=== PATIENT | female | born 1950 | race Hispanic/Latino ===

== ENCOUNTER 2017-04-07 07:39 | Inpatient (IN) | payer MEDICARE, OTHER ==
--- NOTE | 2017-04-02 12:53 | Anesthesia Consultation ---
Anesthesia Consult and Med Hx Date of service: 04/07/17 - Airway Anesthetic Teeth Evaluation: Poor, Caps ROM Head & Neck: Adequate Mental/Hyoid Distance: Adequate Mallampati Class: Class III Intubation Access Assessment: Probably Good - Pulmonary Exam CTA: Yes - Cardiac Exam Cardiac Exam: RRR - Pre-Operative Health Status ASA Pre-Surgery Classification: ASA3 Proposed Anesthetic Plan: General - Pulmonary Hx Smoking: Yes (QUIT 25 YEARS AGO) Hx Sleep Apnea: Yes - Cardiovascular System Hx Hypertension: Yes (OVER 50YEARS) - Central Nervous System Hx Psychiatric Problems: Yes - Gastrointestinal Hx Gastroesophageal Reflux Disease: Yes - Other Systems Hx Alcohol Use: No Hx Substance Use: No Hx Cancer: No Hx Obesity: Yes - Additional Comments Anesthesia Medical History Comments: h/o arthritis, HLD. Pulmonary and cardiac evaluation pending
[~2017-04-07 07:39] MED LIST: ANCEF/STERILE WATER 2 GM/20 ML 2 GM/20 ML SYRINGE IV NR; APRESOLINE IV PRN; FLAGYL 500 MG/100 ML 500 MG/100 ML BAG IV NR; LOVENOX SUB-Q NR; MARCAINE 0.5% INFILTRATI ONE; MORPHINE IV PRN; MYLICON PO PRN; NACL 0.9% IR ONE; REGLAN IV PRN; TRANSDERM-SCOP TD SCH; XYLOCAINE 1% 20 mL INFILTRATI ONE; ZOFRAN IV PRN
[2017-04-07] MEDS ORDERED: NACL BACTERIOSTATIC INFILTRATI ONE (10:57)
[2017-04-07] MEDS: LACTATED RINGERS 1,000 ML IV SCH (11:28)
[2017-04-07] MEDS ORDERED: PEPCID IV ONE (12:06)
[2017-04-07] MEDS ORDERED: XYLOCAINE CARDIAC IV ONE (12:18)
[2017-04-07] MEDS ORDERED: ZEMURON IV ONE (12:18)
[2017-04-07] MEDS ORDERED: QUELICIN ONE (12:18)
[2017-04-07] MEDS ORDERED: DIPRIVAN 10 MG/ML IV ONE (12:19)
[2017-04-07] MEDS ORDERED: SUBLIMAZE ONE (12:21)
[2017-04-07] MEDS ORDERED: PEPCID IV NR (13:00)
[2017-04-07] MEDS ORDERED: MARCAINE 0.5% 30 ML INFILTRATI ONE (13:03)
[2017-04-07] MEDS ORDERED: XYLOCAINE 1% 20 mL ONE (13:03)
--- NOTE | 2017-04-07 13:46 | Anesthesia Day of Surgery ---
Anesthesia Day of Surgery - Day of Surgery Patient Examined: Yes Patient H&P Reviewed: Yes Patient is NPO: Yes
[2017-04-07] MEDS ORDERED: DILAUDID ONE (14:45)
[2017-04-07] MEDS ORDERED: APRESOLINE ONE (14:54)
[2017-04-07] MEDS ORDERED: NEOSTIGMINE ONE (15:14)
[2017-04-07] MEDS ORDERED: DECADRON ONE (15:14)
[2017-04-07] MEDS ORDERED: ROBINUL ONE (15:14)
[2017-04-07] MEDS ORDERED: ZOFRAN ONE (15:14)
[2017-04-07] MEDS ORDERED: PROAIR IH ONE (15:25)
[2017-04-07] MEDS ORDERED: VALIUM PO PRN (15:31)
--- NOTE | 2017-04-07 15:38 | Operative Report ---
Operative Report Operative Report: DATE OF PROCEDURE: 12/23/16 PREOPERATIVE DIAGNOSES: Morbid obesity, hiatal hernia POSTOPERATIVE DIAGNOSES: 1.same as pre-op SURGEON: Dr. Ramsey EMT BASIC: Crystal King DO, Dr. Kenny PROCEDURE: 1. laparoscopic sleeve gastrectomy 2. laparoscopic hiatal hernia repair 3.Lysis of adhesions ANESTHESIA: General. ESTIMATED BLOOD LOSS: <5 mL. COMPLICATIONS: None. SPECIMEN: Partial gastrectomy. FINDINGS: 1. hiatal hernia 2. Adhesions in the midline and RUQ. INDICATION FOR PROCEDURE: Patient is a 67-year-old female with hx of an open cholecystectomy and a long history of morbid obesity. She has tried multiple efforts at weight loss without [facility]cf[facility] success. She is here today for sleeve gastrectomy. PROCEDURE IN DETAIL: After consent was reviewed, patient was taken back to the operating room, where patient was placed supine on the bed with both arms out. The patient's legs were doubly strapped to the bed. Patient had a foot board in place. Patient had a body warmer placed by anesthesia. Patient was then prepped and draped in normal sterile surgical fashion. After a time-out was called, I made a stab incision in the left upper quadrant and placed a verress needed through this incison and insufflated the abdomen to 18mmgh pressure. Once the abdomen was adequately inflated I made an incision in the umbilicus and inserted a 15mm trocar. I then placed a 45-degree scope through this port and inspected the abdomen. There was no injury on entry of the abdomen. I then placed two 5-mm ports in the right upper quadrant, one along the anterior axillary line and 1 subxiphoid below the costovertebral angle. Prior to placing additional ports adhesions were lysed in the right upper quadrant and midline. I then placed left upper quadrant port along the anterior axillary line in a similar fashion. I then placed the liver retractor through the subxiphoid port and placed the patient in full reverse Trendelenburg. The right and left crura were skeletonized accentuating a small hiatal hernia. An anterior cruraplasty was perfromed with a figure-of-8 stitch using [id number] with 0 ethibond suture to reapproximate the crura. I then identified the pylorus and then counted off 6cm from the pylorus. I then used a LigaSure cutting device to enter into the lesser sac. At that point and then I took down the short gastrics all the way up to the left jules. Then I had anesthesia pass down a 40-Liberian bougie along the lesser curvature of the stomach. I made sure everything else was out of the abdomen except the bougie. I then created my gastric sleeve using a 60-mm laparoscopic stapler. . The sleeve looked good without any twisting or torsion. I then had anesthesia to remove the bougie. Hemostasis was obtained along the staple line. I then removed liver grasper and took it off the field. I then removed the stomach through the 15-mm umbilcal port. I then closed that fascia with a #1 PDS in a [id number] fashion using a Josh-Meenakshi. I then desufflated the abdomen and then removed all port sites. I then closed the incisions with 4-0 Monocryl in subcuticular fashion. I then dressed the wounds with Dermabond. Patient tolerated the procedure well and was transferred to recovery room in good and stable condition
[2017-04-07] MEDS: NORCO PO PRN (16:44)
[2017-04-07] MEDS: DILAUDID IV PRN ×2 (18:46→23:44)
[2017-04-07] MEDS ORDERED: REQUIP PO SCH (22:00)
[2017-04-08 04:37] LABS: Basophils % (Auto) 0.4 % (0.0-1.8); Hematocrit 33.8 % (30.3-42.9); Hemoglobin 11.7 gm/dl (10.1-14.3); Lymphocytes # (Auto) 0.7 K/mm3 (1.2-5.4); Lymphocytes % (Auto) 9.6 % (13.4-35.0); Mean Corpuscular HGB Conc 35 % (30-34); Mean Corpuscular Hemoglobin 31 pg (28-32); Mean Corpuscular Volume 91 fl (79-97); Monocytes # (Auto) 0.7 K/mm3 (0.0-0.8); Monocytes % (Auto) 9.8 % (0.0-7.3); Platelet Count 146 K/mm3 (140-440); Red Blood Count 3.73 M/mm3 (3.65-5.03); Red Cell Distribution Width 13.7 % (13.2-15.2)
[2017-04-08 05:10] LABS: Calcium 8.5 mg/dL (8.4-10.2)
[2017-04-08] MEDS: NORCO PO PRN ×2 (09:29→15:59)
[2017-04-08] MEDS: LACTATED RINGERS 1,000 ML IV SCH (09:43)
[2017-04-08] MEDS ORDERED: LOVENOX SUB-Q SCH (10:00)
[2017-04-08] MEDS ORDERED: PROTONIX IV SCH (10:00)
[2017-04-08] MEDS ORDERED: CORGARD PO SCH (10:00)
[2017-04-08] MEDS ORDERED: ZOLOFT PO SCH (10:00)
[2017-04-08] MEDS ORDERED: EFFEXOR PO SCH (10:00)
[2017-04-08] MEDS ORDERED: DITROPAN XL PO SCH (10:00)
[2017-04-08] MEDS: DILAUDID IV PRN (12:34)
--- NOTE | 2017-04-08 14:25 | Progress Note ---
Objective Vital Signs - 12hr 04/08/17 04/08/17 04/08/17 04:33 08:54 08:55 Temperature 98.1 F 98.7 F Pulse Rate 60 55 L 57 L Respiratory 20 18 Rate Blood Pressure 117/55 129/50 O2 Sat by Pulse 95 97 97 Oximetry 04/08/17 09:44 Temperature Pulse Rate 55 L Respiratory Rate Blood Pressure 129/50 O2 Sat by Pulse Oximetry - Labs 04/08/17 04:00 04/08/17 04:00 Diabetes panel 04/08/17 Range/Units 04:00 Sodium 141 (137-145) mmol/L Potassium 3.5 L (3.6-5.0) mmol/L Chloride 98.8 (98-107) mmol/L Carbon Dioxide 25 (22-30) mmol/L BUN 38 H (7-17) mg/dL Creatinine 1.3 H (0.7-1.2) mg/dL Glucose 78 (65-100) mg/dL Calcium 8.5 (8.4-10.2) mg/dL Calcium panel 04/08/17 Range/Units 04:00 Calcium 8.5 (8.4-10.2) mg/dL Pituitary panel 04/08/17 Range/Units 04:00 Sodium 141 (137-145) mmol/L Potassium 3.5 L (3.6-5.0) mmol/L Chloride 98.8 (98-107) mmol/L Carbon Dioxide 25 (22-30) mmol/L BUN 38 H (7-17) mg/dL Creatinine 1.3 H (0.7-1.2) mg/dL Glucose 78 (65-100) mg/dL Calcium 8.5 (8.4-10.2) mg/dL Adrenal panel 04/08/17 Range/Units 04:00 Sodium 141 (137-145) mmol/L Potassium 3.5 L (3.6-5.0) mmol/L Chloride 98.8 (98-107) mmol/L Carbon Dioxide 25 (22-30) mmol/L BUN 38 H (7-17) mg/dL Creatinine 1.3 H (0.7-1.2) mg/dL Glucose 78 (65-100) mg/dL Calcium 8.5 (8.4-10.2) mg/dL
--- NOTE | 2017-04-08 15:42 | Discharge Summary ---
Providers - Providers Date of Admission: 04/07/17 09:54 Attending physician: JUDITH GALINDO Primary care physician: MICHELLE SHARMA Hospitalization Reason for admission: Surgery Condition: Stable Procedures: Laparoscopic Sleeve Gastrectomy with hiatal hernia repair Hospital course: 67 y.o. F admitted for a laparoscopic sleeve gastrectomy on 04/07/17.On POD one she tolerated liquids and denies any nausea or vomiting. . She has not experienced any nausea or vomiting and is tolerating her liquids well. She only complains of dry mouth and diffuse abdominal tenderness to palpation at incision sites however the pain is controlled with pain medication. She denied having any bowel movements or flatulence. She ambulated well. She was able to be discharged on POD 1 without issues. Disposition: DC- TO HOME OR SELFCARE Core Measure Documentation - Palliative Care Palliative Care/ Comfort Measures: Not Applicable (care palliative care not applicable) - Core Measures Any of the following diagnoses?: none Exam - Constitutional Vitals: Temp Pulse Resp BP Pulse Ox 98.4 F 57 L 18 128/37 98 04/08/17 11:20 04/08/17 11:21 04/08/17 11:20 04/08/17 11:20 04/08/17 11:21 General appearance: Present: no acute distress, well-nourished (exam) - EENT Eyes: Present: PERRL, EOM intact ENT: hearing intact, no ulcerations - Neck Neck: Present: normal ROM - Respiratory Respiratory effort: normal Respiratory: bilateral: CTA, negative: diminished, rales, rhonchi, wheezing - Cardiovascular Rhythm: regular Heart Sounds: Present: S1 & S2. Absent: gallop, rub, click - Extremities Extremities: no ischemia, pulses intact (2+ DP/PT pulses bilaterally), pulses symmetrical Peripheral Pulses: within normal limits - Abdominal General gastrointestinal: Present: soft, tender (tender at incision sites. incision sites- dressing intact. with minimal bloostained), non-distended, normal bowel sounds Localized gastrointestinal: tender: diffuse (tenderness only to palpation) Female genitourinary: Present: deferred - Rectal Rectal Exam: deferred - Integumentary Integumentary: Present: clear, dry, normal turgor. Absent: rash, clammy - Musculoskeletal Musculoskeletal: strength equal bilaterally - Psychiatric Psychiatric: appropriate mood/affect, intact judgment & insight, cooperative - Neurologic Neurologic: moves all extremities, gait normal Plan Activity: other (No lifting more than 15 Ibs for 6 weeks, refrain from doing crunches for 6 weeks) Diet: clear liquids (Clear liquids for a week then advance diet every week per bariatric handout) Wound: keep clean and dry, other Additional Instructions: follow up with wound check appointment. Start with clear sugar free diet. Advance diet per handout. Goal fluid intake should be 64oz and goal protein should be 60g. Discuss with your primary surgeon prior to taking your home medication for your blood pressure. Your blood pressure has been 120systolic. Follow up with: MICHELLE SHARMA MD [Primary Care Provider] - 7 Days
[2017-04-08 17:18] VITALS: BP 126/52
[2017-04-08] MEDS ORDERED: BENADRYL IV ONE (17:37)
== END 2017-04-08 18:35 | disposition home or self-care (01) | DRG 621 ==
LOC: 3A 09:54 → 3B-SURG 16:04
PROVIDERS: ADMIT Specialist; ATTEND Specialist
PROC: 0DB64Z3 Excision of Stomach, Percutaneous Endoscopic Approach, Vertical (ICD-10-PCS; principal; 2017-04-07)
PROC: 0BQT4ZZ Repair Diaphragm, Percutaneous Endoscopic Approach (ICD-10-PCS; 2017-04-07)
DX: E66.01 Morbid (severe) obesity due to excess calories (principal); K44.9 Diaphragmatic hernia without obstruction or gangrene; Z68.42 Body mass index [BMI] 45.0-49.9, adult; I10 Essential (primary) hypertension; K21.9 Gastro-esophageal reflux disease without esophagitis; Z90.49 Acquired absence of other specified parts of digestive tract; K66.0 Peritoneal adhesions (postprocedural) (postinfection); Z87.891 Personal history of nicotine dependence; G47.30 Sleep apnea, unspecified; M19.90 Unspecified osteoarthritis, unspecified site
CPT/HCPCS: 36415; 80048; 85025; 88307; 94760; A4217; C9113; J0330; J0360; J0690; J1100; J1170; J1200; J1650; J2001; J2270; J2405; J2704; J2710; J3010; J7120

== ENCOUNTER 2017-05-04 08:07 | Inpatient (IN) | payer MEDICARE, OTHER ==
[2017-05-04 09:01] LABS: Basophils # (Auto) 0.1 K/mm3 (0.0-0.1); Eosinophils % (Auto) 0.3 % (0.0-4.3); Hematocrit 40.2 % (30.3-42.9); Hemoglobin 13.3 gm/dl (10.1-14.3); Mean Corpuscular HGB Conc 33 % (30-34); Mean Corpuscular Hemoglobin 31 pg (28-32); Mean Corpuscular Volume 92 fl (79-97); Monocytes # (Auto) 0.7 K/mm3 (0.0-0.8); Monocytes % (Auto) 5.4 % (0.0-7.3); Platelet Count 157 K/mm3 (140-440); Red Blood Count 4.36 M/mm3 (3.65-5.03); Red Cell Distribution Width 14.7 % (13.2-15.2)
[2017-05-04 09:08] LABS: Albumin 4.2 g/dL (3.9-5); Calcium 10.4 mg/dL (8.4-10.2)
--- NOTE | 2017-05-04 09:33 | XRay Report ---
AP ABDOMEN: HISTORY: Abdominal pain. Surgical clips are noted in the right upper quadrant and left paraspinal region, correlate with history. The abdominal gas pattern is unremarkable. No masses or organomegaly is identified and there is no gross evidence of free air or fluid. No significant soft tissue calcifications are noted. IMPRESSION: Unremarkable abdomen.
[2017-05-04 09:40] LABS: Basophils % (Manual) 0 % (0.0-1.8); Eosinophils % (Manual) 0 % (0.0-4.3); RBC Morphology Normal; Total Cells Counted 100
[2017-05-04] MEDS ORDERED: MORPHINE IV ONE ×2 (12:57→17:48)
[2017-05-04] MEDS ORDERED: NACL 0.9% 1000 ML 1,000 ML IV ONE ×2 (12:57→12:58)
[2017-05-04] MEDS ORDERED: ZOFRAN IV ONE (12:57)
--- NOTE | 2017-05-04 13:02 | Emergency Department Report ---
ED Abdominal Pain HPI - General Chief Complaint: Abdominal Pain Stated Complaint: GI BLEED Time Seen by Provider: 05/04/17 12:51 Source: patient, family Mode of arrival: Ambulatory Limitations: No Limitations - History of Present Illness Initial Comments: Patient is 67 years old female history of gastric sleeves surgery [address] Ramsey, here in [facility]. Patient stated that she was doing well until yesterday when she started having lower abdominal pain mainly to the left side, associated with rectal bleeding. Patient is also complaining of nausea but no vomiting. Patient denied any fever. MD Complaint: abdominal pain -: Last night Location: LLQ, epigastric Radiation: none Severity: moderate Severity scale (0 -10): 7 Quality: sharp Associated Symptoms: nausea, vomiting - Related Data Home Medications Medication Instructions Recorded Confirmed Last Taken Alendronate Sodium [Fosamax] 70 mg PO QWEEK 04/01/17 04/07/17 04/02/17 Dexlansoprazole (Nf) [Dexilant 60 mg PO QHS 04/01/17 04/01/17 04/07/17 08:00 (Nf)] Diazepam 5 mg PO PRN PRN 04/01/17 04/07/17 04/05/17 Ergocalciferol [Vitamin D2] 1 cap PO QWEEK 04/01/17 04/07/17 04/02/17 Nadolol 80 mg PO DAILY 04/01/17 04/01/17 04/07/17 08:00 Oxybutynin Chloride [Ditropan Xl] 15 mg PO QDAY 04/01/17 04/01/17 04/07/17 08:00 Potassium Chloride [Klor-Con M10] 10 meq PO DAILY 04/01/17 04/01/17 04/07/17 08: 00 Pravastatin [Pravachol] 20 mg PO QHS 04/01/17 04/01/17 04/07/17 08:00 Ranitidine HCl [Zantac 300 MG TAB] 300 mg PO DAILY 04/01/17 04/07/17 04/06/17 Sertraline [Zoloft] 200 mg pe PO DAILY 04/01/17 04/01/17 04/07/17 08:00 Triamter/Hctz 75-50 mg (Nf) 1 tab PO DAILY 01/04/07/17 04/06/17 [Maxzide 75-50 mg] Venlafaxine HCl 75 mg PO DAILY 04/01/17 04/01/17 04/07/17 08:00 rOPINIRole [Requip] 2 mg PO QHS 04/01/17 04/07/17 04/06/17 Allergies Allergy/AdvReac Type Severity Reaction Status Date / Time No Known Allergies Allergy Verified 04/01/17 13:48 ED Review of Systems ROS: Stated complaint: GI BLEED Other details as noted in HPI Comment: All other systems reviewed and negative Constitutional: denies: chills, fever Respiratory: denies: cough, shortness of breath, SOB with exertion, SOB at rest Cardiovascular: denies: chest pain, palpitations, dyspnea on exertion Gastrointestinal: abdominal pain, nausea. denies: diarrhea, constipation, hematemesis, melena, hematochezia Genitourinary: denies: urgency, dysuria, frequency, hematuria, discharge Neurological: denies: headache, weakness, numbness, paresthesias ED Past Medical Hx - Past Medical History Previous Medical History?: Yes Hx Hypertension: Yes Hx GERD: Yes Hx Arthritis: Yes Hx HIV: No - Surgical History Past Surgical History?: Yes Hx Cholecystectomy: Yes Additional Surgical History: gastric sleeve - Social History Smoking Status: Never Smoker - Medications Home Medications: Home Medications Medication Instructions Recorded Confirmed Last Taken Type Alendronate Sodium [Fosamax] 70 mg PO QWEEK 04/01/17 04/07/17 04/02/[address] Garcia) [Dexilant 60 mg PO QHS 04/01/17 04/01/17 04/07/17 08:[address] Garcia)] Diazepam 5 mg PO PRN PRN 04/01/17 04/07/17 04/05/17 History Ergocalciferol [Vitamin D2] 1 cap PO QWEEK 04/01/17 04/07/17 04/02/17 History Nadolol 80 mg PO DAILY 04/01/17 04/01/17 04/07/17 08:00 History Oxybutynin Chloride [Ditropan Xl] 15 mg PO QDAY 04/01/17 04/01/17 04/07/17 08: 00 History Potassium Chloride [Klor-Con M10] 10 meq PO DAILY 04/01/17 04/01/17 04/07/17 08: 00 History Pravastatin [Pravachol] 20 mg PO QHS 04/01/17 04/01/17 04/07/17 08:00 History Ranitidine HCl [Zantac 300 MG TAB] 300 mg PO DAILY 04/01/17 04/07/17 04/06/17 History Sertraline [Zoloft] 200 mg pe PO DAILY 04/01/17 04/01/17 04/07/17 08:00 History Triamter/Hctz 75-50 mg (Nf) 1 tab PO DAILY 04/01/17 04/07/17 04/06/17 History [Maxzide 75-50 mg] Venlafaxine HCl 75 mg PO DAILY 04/01/17 04/01/17 04/07/17 08:00 History rOPINIRole [Requip] 2 mg PO QHS 04/01/17 04/07/17 04/06/17 History ED Physical Exam - General Limitations: No Limitations General appearance: alert, in no apparent distress - Head Head exam: Present: atraumatic, normocephalic, normal inspection - Eye Eye exam: Present: normal appearance, PERRL - ENT ENT exam: Present: normal exam, normal orophraynx, mucous membranes dry - Neck Neck exam: Present: normal inspection, full ROM. Absent: tenderness, meningismus, lymphadenopathy - Respiratory Respiratory exam: Present: normal lung sounds bilaterally. Absent: respiratory distress, wheezes, rales, rhonchi, chest wall tenderness, accessory muscle use, decreased breath sounds, prolonged expiratory - Cardiovascular Cardiovascular Exam: Present: regular rate, normal rhythm, normal heart sounds - GI/Abdominal GI/Abdominal exam: Present: soft, tenderness, normal bowel sounds. Absent: distended, guarding, rebound, rigid, organomegaly, mass, bruit, pulsatile mass, hernia - Extremities Exam Extremities exam: Present: normal inspection, full ROM, normal capillary refill - Back Exam Back exam: Present: normal inspection, full ROM. Absent: tenderness, CVA tenderness (R), CVA tenderness (L), muscle spasm, paraspinal tenderness - Neurological Exam Neurological exam: Present: alert, oriented X3, CN II-XII intact, normal gait - Skin Skin exam: Present: warm, dry, intact, normal color ED Course Vital Signs 05/04/17 05/04/17 05/04/17 08:17 14:12 14:16 Temperature 97.4 F L Pulse Rate 54 L Respiratory 20 Rate Blood Pressure 155/61 123/46 123/46 O2 Sat by Pulse 95 97 98 Oximetry - Reevaluation(s) Reevaluation #1: 05/04/17 17:[address] Ramsey resident Dr. Vieyra, she stated that she will come and see the patient in the morning as a consult. ED Medical Decision Making - Lab Data Result diagrams: 05/04/17 08:28 05/04/17 08:28 - Radiology Data Radiology results: report reviewed Referring Physician: MERCEDES JACK Patient Name: NERI PHELAN Date of : 1950 Sex: Female Report Date: 2017-05-04 Report Status: [place] [address] Cat Scan Report Signed Patient: NERI PHELAN MR#: [id number] : 1950 Acct:[id number] Age/Sex: 67 / F ADM Date: 05/04/17 Loc: ED Attending Dr: Ordering Physician: MERCEDES JCAK Date of Service: 05/04/17 Procedure(s): CT abdomen pelvis wo con Accession Number(s): [id number] cc: MERCEDES JACK CT ABDOMEN PELVIS WITHOUT CONTRAST: HISTORY: abdominal pain. COMPARISON: none. TECHNIQUE: Helical CT in 1.25mm intervals without IV contrast. Sagittal and coronal reconstructions. FINDINGS: Lung bases: Normal. Liver: Normal. Biliary system: Cholecystectomy has been performed. No biliary dilatation. Pancreas: There is mild fatty atrophy of the pancreas. No mass or acute inflammation. Spleen: Moderate splenomegaly measuring 16.3 cm. Kidneys/ureters/bladder: Normal. Adrenal glands: Normal. Aorta: Mild diffuse calcifications. No aneurysm. Intestines: No oral contrast was administered which limits evaluation of the bowel loops. Gastric sleeve surgical changes are suspected, correlate with history. There is no evidence for bowel obstruction or focal inflammation. Appendix: Normal. Pelvic viscera: Normal. Ascites: None. Adenopathy: None. Musculoskeletal: Moderate thoracolumbar spondylosis. No fracture or suspicious bony lesion. IMPRESSION: No acute inflammatory process is identified. Surgical changes as described. Splenomegaly. Transcribed By: TTR Dictated By: NALLELY HAMMER JR, MD Electronically Authenticated By: NALLELY HAMMER JR, MD Signed Date/Time: 05/04/17 1505 DD/ 1502 TD/TT: 05/04/17 1505 - Medical Decision Making Discussed with Dr. England, I presented the patient to him, he agreed to admit to his service. I discussed the patient is Dr. Ted Gomes from GI, he advised to admit to the hospitalist and they will see the patient in the morning. Critical care attestation.: If time is entered above; I have spent that time in minutes in the direct care of this critically ill patient, excluding procedure time. ED Disposition Clinical Impression: Abdominal pain, GI bleed Disposition: OP ADMIT IP TO THIS HOSP Is pt being admited?: Yes Condition: Stable Instructions: Abdominal Pain (ED) Referrals: PRIMARY CARE, [Primary Care Provider] - 3-5 Days
--- NOTE | 2017-05-04 15:13 | Cat Scan Report ---
CT ABDOMEN PELVIS WITHOUT CONTRAST: HISTORY: abdominal pain. COMPARISON: none. TECHNIQUE: Helical CT in 1.25mm intervals without IV contrast. Sagittal and coronal reconstructions. FINDINGS: Lung bases: Normal. Liver: Normal. Biliary system: Cholecystectomy has been performed. No biliary dilatation. Pancreas: There is mild fatty atrophy of the pancreas. No mass or acute inflammation. Spleen: Moderate splenomegaly measuring 16.3 cm. Kidneys/ureters/bladder: Normal. Adrenal glands: Normal. Aorta: Mild diffuse calcifications. No aneurysm. Intestines: No oral contrast was administered which limits evaluation of the bowel loops. Gastric sleeve surgical changes are suspected, correlate with history. There is no evidence for bowel obstruction or focal inflammation. Appendix: Normal. Pelvic viscera: Normal. Ascites: None. Adenopathy: None. Musculoskeletal: Moderate thoracolumbar spondylosis. No fracture or suspicious bony lesion. IMPRESSION: No acute inflammatory process is identified. Surgical changes as described. Splenomegaly.
[2017-05-04] MEDS ORDERED: GOLYTELY PO ONE (17:00)
[2017-05-04] MEDS ORDERED: TYLENOL PO PRN (17:12)
[2017-05-04] MEDS ORDERED: PROVENTIL IH PRN (17:12)
[2017-05-04] MEDS ORDERED: MORPHINE IV PRN (17:12)
[2017-05-04] MEDS ORDERED: ZOFRAN IV PRN (17:12)
--- NOTE | 2017-05-04 17:12 | History and Physical Report ---
History of Present Illness Chief complaint: I was bleeding History of present illness: 67 YO Female with Obesity S/P Gastric Sleeve, HTN, GERD, OA presents to ED for evaluation. Pt states that she was in her usual state of health, until yesterday. Pt states that she experienced acute onset abdominal pain. Pain is localized to the left side of her abdomen. Pain is 5/10, intermittent, worse with palpation, or movement, not relieved with rest. Pt acknowledges rectal bleeding as well as nausea. Pt denies fever, chills, CP, Palpitations, Syncope, recent ill contacts, ingestion of food/water from new or different sources. Pt seen and evaluated in ED and found to have GI Bleed, Sirs. Pt admitted to medical floor. Bariatric Surgery, and GI team consulted in ED. Past History Past Medical History: arthritis, GERD, hypertension Past Surgical History: cholecystectomy, Other (Gastric Sleeve) Social history: , lives with family. denies: smoking, alcohol abuse, prescription drug abuse Family history: hypertension Medications and Allergies Allergies Allergy/AdvReac Type Severity Reaction Status Date / Time No Known Allergies Allergy Verified 04/01/17 13:48 Home Medications Medication Instructions Recorded Confirmed Last Taken Type Alendronate Sodium [Fosamax] 70 mg PO QWEEK 04/01/17 04/07/17 04/02/[address] Garcia) [Dexilant 60 mg PO QHS 04/01/17 04/01/17 04/07/17 08:[address] Garcia)] Diazepam 5 mg PO PRN PRN 04/01/17 04/07/17 04/05/17 History Ergocalciferol [Vitamin D2] 1 cap PO QWEEK 04/01/17 04/07/17 04/02/17 History Nadolol 80 mg PO DAILY 04/01/17 04/01/17 04/07/17 08:00 History Oxybutynin Chloride [Ditropan Xl] 15 mg PO QDAY 04/01/17 04/01/17 04/07/17 08: 00 History Potassium Chloride [Klor-Con M10] 10 meq PO DAILY 04/01/17 04/01/17 04/07/17 08: 00 History Pravastatin [Pravachol] 20 mg PO QHS 04/01/17 04/01/17 04/07/17 08:00 History Ranitidine HCl [Zantac 300 MG TAB] 300 mg PO DAILY 04/01/17 04/07/17 04/06/17 History Sertraline [Zoloft] 200 mg pe PO DAILY 04/01/17 04/01/17 04/07/17 08:00 History Triamter/Hctz 75-50 mg (Nf) 1 tab PO DAILY 04/01/17 04/07/17 04/06/17 History [Maxzide 75-50 mg] Venlafaxine HCl 75 mg PO DAILY 04/01/17 04/01/17 04/07/17 08:00 History rOPINIRole [Requip] 2 mg PO QHS 04/01/17 04/07/17 04/06/17 History Review of Systems Constitutional: no weight loss, no weight gain, no fever, no chills, no weakness Ears, nose, mouth and throat: no ear pain, no ear discharge, no tinnitis, no decreased hearing, no nose pain, no nasal congestion, no nasal discharge Breasts: no change in shape, no swelling, no mass Cardiovascular: no chest pain, no orthopnea, no palpitations, no rapid/ irregular heart beat, no edema, no syncope Respiratory: no cough, no cough with sputum, no excessive sputum, no hemoptysis , no shortness of breath Gastrointestinal: abdominal pain, nausea, BRBPR, no vomiting, no diarrhea, no constipation, no change in bowel habits, no hematemesis, no excessive gas, no jaundice Genitourinary Female: no pelvic pain, no flank pain, no menorrhagia, no dysuria , no urinary frequency, no urgency Rectal: bleeding, no pain, no incontinence Musculoskeletal: no neck stiffness, no neck pain, no shooting arm pain, no arm numbness/tingling, no low back pain, no shooting leg pain Integumentary: no rash, no pruritis, no redness, no sores, no wounds, no jaundice, no boils Neurological: no head injury, no transient paralysis, no paralysis, no weakness , no parathesias, no numbness, no tingling, no seizures Psychiatric: no anxiety, no memory loss, no sleep disturbances, no insomnia, no hypersomnia Endocrine: no cold intolerance, no heat intolerance, no polyphagia, no excessive thirst, no polydipsia, no polyuria, no nocturia Hematologic/Lymphatic: no easy bruising, no easy bleeding, no lymphadenopathy, no lymphedema Allergic/Immunologic: no urticaria, no allergic rhinitis, no wheezing, no angioedema Exam - Constitutional Vitals: Temp Pulse Resp BP Pulse Ox 97.4 F L 54 L 20 123/46 98 05/04/17 08:17 05/04/17 08:17 05/04/17 08:17 05/04/17 14:16 05/04/17 14:16 General appearance: Present: mild distress, obese - EENT Eyes: Present: PERRL ENT: hearing intact, clear oral mucosa - Neck Neck: Present: supple, normal ROM - Respiratory Respiratory effort: normal Respiratory: bilateral: CTA - Cardiovascular Heart Sounds: Present: S1 & S2. Absent: rub, click - Extremities Extremities: pulses symmetrical, No edema Peripheral Pulses: within normal limits - Abdominal General gastrointestinal: Present: soft, tender, non-distended, normal bowel sounds. Absent: hepatomegaly, splenomegaly, mass Localized gastrointestinal: tender: diffuse Female genitourinary: Present: normal - Integumentary Integumentary: Present: clear, warm, dry - Musculoskeletal Musculoskeletal: gait normal, strength equal bilaterally - Psychiatric Psychiatric: appropriate mood/affect, intact judgment & insight - Neurologic Neurologic: CNII-XII intact, moves all extremities Results - Labs CBC & Chem 7: 05/04/17 08:28 05/04/17 08:28 Labs: Abnormal lab results 05/04/17 05/04/17 Range/Units 08:28 08:28 WBC 12.7 H (4.5-11.0) K/mm3 Seg Neuts % (Manual) 90.0 H (40.0-70.0) % Lymphocytes % (Manual) 7.0 L (13.4-35.0) % Seg Neutrophils # 11.5 H (1.8-7.7) K/mm3 Seg Neutrophils # Man 11.4 H (1.8-7.7) K/mm3 Lymphocytes # (Manual) 0.9 L (1.2-5.4) K/mm3 Chloride 96.8 L (98-107) mmol/L BUN 54 H (7-17) mg/dL Creatinine 1.7 H (0.7-1.2) mg/dL Glucose 141 H (65-100) mg/dL Calcium 10.4 H (8.4-10.2) mg/dL AST 56 H (5-40) units/L Alkaline Phosphatase 139 H (35-129) units/L Assessment and Plan - Patient Problems (1) GI bleed Current Visit: Yes Status: Acute Plan to address problem: IV PPI therapy, CT ABdomen pelvis, GI consulted in ED, Bariatric Surery consulted in ED, Abdominal x ray, pain control, serial abdominal exams, (2) SIRS (systemic inflammatory response syndrome) Current Visit: Yes Status: Acute Plan to address problem: IV antibiotics, CBC, X ray, CT abdomen pelvis, (3) HTN (hypertension) Current Visit: Yes Status: Acute Qualifiers: Hypertension type: essential hypertension Qualified Code(s): I10 - Essential (primary) hypertension Plan to address problem: monitor bp q shift, IV hydralazine prn, continue medical management. (4) GERD (gastroesophageal reflux disease) Current Visit: Yes Status: Acute Qualifiers: Esophagitis presence: without esophagitis Qualified Code(s): K21.9 - Gastro -esophageal reflux disease without esophagitis Plan to address problem: PPI therapy, GI consulted, (5) DVT prophylaxis Current Visit: Yes Status: Acute Plan to address problem: SCD to BLE
[2017-05-04 17:37] LABS: INR 1.06 (0.87-1.13)
[2017-05-04 17:38] LABS: Partial Thromboplastin Time 25.8 Sec. (24.2-36.6)
[2017-05-04] MEDS ORDERED: D5/0.45NS 1,000 ML IV SCH (18:00)
[2017-05-04 18:29] LABS: Bilirubin,Urine NEG (Negative); Blood,Urine NEG (Negative); Color,Urine Yellow (Yellow); Mucus,Urine FEW /HPF; Protein,Urine <15 mg/dL mg/dL (Negative); RBC,Urine < 1.0 /HPF (0.0-6.0); Urobilinogen,Urine < 2.0 mg/dL (<2.0)
[2017-05-04] MEDS: FLAGYL 500 MG/100 ML 500 MG/100 ML BAG IV SCH (22:24)
[2017-05-04] MEDS: REQUIP PO SCH (22:25)
[2017-05-05] MEDS: FLAGYL 500 MG/100 ML 500 MG/100 ML BAG IV SCH ×3 (06:06→21:22)
--- NOTE | 2017-05-05 07:55 | Consultation ---
REFERRING PHYSICIAN: Ramiro England MD INDICATION: GI bleed. HISTORY OF PRESENT ILLNESS: The patient is a 67-year-old white female with history of status post gastric sleeve and had a colonoscopy 1-2 months ago, now presents or rectal bleeding. The patient reports usual state of health until yesterday when she started having some lower abdominal cramping. She reports since that time, she had bouts of bright red blood per rectum approximately 3-5. She reports this has never happened before. The patient reports she did have 2 polyps removed on the colonoscopy and though she is unclear as to exactly the date, thinks it was more than a month ago, but less than 2. She reports no NSAIDs or aspirin. She does report some recent constipation. She denies any upper GI symptoms including nausea, vomiting. Denies any other specific GI problems or complaints. PAST MEDICAL HISTORY: 1. Status post gastric bypass. 2. GERD. 3. Hypertension. MEDICATIONS: See chart. ALLERGIES: No known drug allergies. SOCIAL HISTORY: Denies alcohol, tobacco, or drug abuse. FAMILY HISTORY: Negative for colon cancer. REVIEW OF SYSTEMS: GENERAL: Reports mild weakness. HEENT: No visual complaints or tinnitus. PULMONARY: No shortness of breath. CARDIOVASCULAR: No chest pain. GASTROINTESTINAL: Reports rectal bleeding. All points of a 13-point review of systems otherwise negative. PHYSICAL EXAMINATION: VITAL SIGNS: Temperature of 97.4, pulse 54, respirations 20, blood pressure 130/80. GENERAL: Fairly nourished female in no acute distress. HEENT: Pupils equal, round, and reactive. PULMONARY: Clear to auscultation bilaterally. CARDIOVASCULAR: Regular rhythm. Normal S1, S2. ABDOMEN: Positive bowel sounds, soft. SKIN: No obvious rashes. LABORATORY DATA: Pertinent for white count of 12.7, hemoglobin 13.3 and 40.2, platelet count of 157. Chem-7 within normal limits. LFTs benign. CT scan showed no significant GI pathology. ASSESSMENT AND PLAN: A 67-year-old female, status post colonoscopy with polypectomy 1-2 months ago, now presents with rectal bleeding. The patient's labs are stable. I discussed with the patient and her . They are concerned about these findings and would want to ensure no GI pathology. PLAN: 1. Follow hematocrit and transfuse as needed. 2. PPI daily. 3. Plan colonoscopy in a.m. [facility]# [id number] ASHLEY/BLANCO [place]Y
[2017-05-05 08:56] LABS: Basophils % (Auto) 0.3 % (0.0-1.8); Eosinophils % (Auto) 0.6 % (0.0-4.3); Lymphocytes % (Auto) 22.2 % (13.4-35.0); Mean Corpuscular HGB Conc 34 % (30-34); Mean Corpuscular Hemoglobin 31 pg (28-32); Mean Corpuscular Volume 92 fl (79-97); Monocytes # (Auto) 0.6 K/mm3 (0.0-0.8); Monocytes % (Auto) 13.2 % (0.0-7.3); Platelet Count 106 K/mm3 (140-440); Red Blood Count 3.53 M/mm3 (3.65-5.03); Red Cell Distribution Width 14.2 % (13.2-15.2)
[2017-05-05 09:00] LABS: Hematocrit 32.6 % (30.3-42.9)
[2017-05-05 09:12] LABS: Albumin 3.4 g/dL (3.9-5)
[2017-05-05 09:15] LABS: Calcium 8.8 mg/dL (8.4-10.2)
[2017-05-05] MEDS ORDERED: WATER FOR IRRIG STERILE IR ONE (09:26)
[2017-05-05] MEDS ORDERED: LEVAQUIN 500MG/100ML 500 MG/100 ML BAG IV ONE (10:00)
[2017-05-05] MEDS ORDERED: LEVAQUIN 500MG/100ML 500 MG/100 ML BAG IV SCH (10:00)
--- NOTE | 2017-05-05 10:05 | XRay Report ---
ABDOMEN, 2 views: History: Abdominal pain. There is no evidence of free air beneath the diaphragms. The gas pattern within the abdomen is unremarkable. There is no evidence of bowel dilatation, significant air-fluid levels, or pathologic calcifications. Organ shadows are unremarkable. Cholecystectomy changes are suspected. IMPRESSION: Unremarkable abdomen.
--- NOTE | 2017-05-05 10:08 | Anesthesia Consultation ---
Anesthesia Consult and Med Hx Date of service: 05/05/17 - Airway Anesthetic Teeth Evaluation: Poor (multiple missing), Caps (6 upper front) ROM Head & Neck: Adequate Mental/Hyoid Distance: Adequate Mallampati Class: Class II Intubation Access Assessment: Probably Good - Pre-Operative Health Status ASA Pre-Surgery Classification: ASA3 Proposed Anesthetic Plan: MAC - Pulmonary Hx Smoking: Yes (QUIT 25 YEARS AGO) Hx Sleep Apnea: Yes - Cardiovascular System Hx Hypertension: Yes (on beta-blockers) - Central Nervous System Hx Psychiatric Problems: Yes (depression) - Gastrointestinal Hx Gastroesophageal Reflux Disease: Yes (s/p gastric sleeve 04/2017) - Other Systems Hx Alcohol Use: No Hx Substance Use: No Hx Cancer: No Hx Obesity: Yes (BMI 44.1)
[2017-05-05] MEDS ORDERED: LOPRESSOR IV ONE (10:09)
--- NOTE | 2017-05-05 10:09 | Anesthesia Day of Surgery ---
Anesthesia Day of Surgery - Day of Surgery Patient Examined: Yes Patient H&P Reviewed: Yes Patient is NPO: Yes Beta Blockers: Yes (given 2.5 mg Metoprolol IV @10AM)
[2017-05-05] MEDS: NACL 0.9% 1000 ML 1,000 ML IV SCH ×2 (10:30→13:28)
[2017-05-05] MEDS ORDERED: DIPRIVAN 10 MG/ML IV ONE ×2 (10:40→10:41)
--- NOTE | 2017-05-05 11:13 | Post Operative Note ---
Pre-op diagnosis: rectal bleeding, anemia Post-op diagnosis: same Procedure: Colonoscopy: mild/moderately inflammed mucosa w/ ulceration noted mainyl sigmoid area (bx's - otherwise benign - consistent with ischemic colitis Anesthesia: MAC Surgeon: RUBIO JACOBSEN Estimated blood loss: none Pathology: list Specimen disposition: to lab Condition: stable Disposition: floor
--- NOTE | 2017-05-05 11:38 | Operative Report ---
PROCEDURE: Colonoscopy with cold biopsy. INDICATIONS: 1. Rectal bleeding. 2. Anemia. MEDICATIONS: Propofol per [employer] MECH[employer]IC. COMPLICATIONS: None. DESCRIPTION OF PROCEDURE: The patient brought to procedure suite. The patient had the procedure discussed with her at length. All risks, complications, and benefits discussed after which the patient signed for the procedure to be performed. The patient was placed in left lateral decubitus position. Rectal exam performed prior to insertion of the scope. After adequate sedation, medication as above, scope inserted into the rectum and brought to the level of the cecum. Ileocecal valve was visualized. Colonoscope was then removed and mucosa visualized. Prep quality was poor. The patient's vital signs remained stable throughout the procedure. FINDINGS: There were no mass lesions or polyps noted during this procedure. This was a poor prep and so cannot rule out small lesions. There was mild sigmoid diverticula noted. There was noted to be mild to moderate inflamed ulcerated mucosa noted particularly in the sigmoid area. Findings were more consistent with ischemic colitis. Biopsies were taken and sent to pathology. The remaining colon mucosa otherwise appeared to be normal. Retroflexion view performed in the rectum showed small to medium internal hemorrhoids. The patient tolerated the procedure well. No complications during the procedure. IMPRESSION: 1. Inflamed mucosa of the sigmoid consistent with ischemic colitis with biopsies performed. 2. Diverticulosis. 3. Internal hemorrhoids. 4. Otherwise, normal colonoscopy. RECOMMENDATIONS: 1. Follow up biopsy results. 2. Continue Levaquin and Flagyl. 3. Advance diet. 4. Tolerate p.o. Okay to discharge from GI standpoint. JOB# [id number] [facility]
[2017-05-05] MEDS ORDERED: ROBINUL ONE (12:00)
[2017-05-05] MEDS ORDERED: K-DUR PO ONE (12:45)
--- NOTE | 2017-05-05 12:53 | Consultation ---
History of Present Illness Reason for consult: abdominal pain Chief complaint: abdominal pain with bright red blood per rectum - History of present illness History of present illness: 67 y.o F with hx of lap gastric bypass Apr 07 2017 presented to the ER yesterday for bright red blood per rectum. For the last week she has been constipated. She started to have lower abdominal pain 10/10 cramps Thursday and into Thursday. Thursday am she started to have bright red blood per rectum. The bleeding started without her even going to the bathroom. She stated the blood was drk red and clots. NO relief of pain after blood per rectum. This am she is feeling better. Her last bm was thursday night/thursday am. she denies fever or chills. She admits to nausea and vomiting earlier in the week. Past History Past Medical History: arthritis, GERD, hypertension Past Surgical History: cholecystectomy, Other (lap Gastric Sleeve apr 07) Social history: , lives with family. denies: smoking, alcohol abuse, prescription drug abuse Family history: hypertension Medications and Allergies Allergies Allergy/AdvReac Type Severity Reaction Status Date / Time No Known Allergies Allergy Verified 04/01/17 13:48 Home Medications Medication Instructions Recorded Confirmed Last Taken Type Alendronate Sodium [Fosamax] 70 mg PO QWEEK 04/01/17 04/07/17 04/02/[address] Garcia) [Dexilant 60 mg PO QHS 04/01/17 04/01/17 04/07/17 08:00 History (Chantel)] Diazepam 5 mg PO PRN PRN 04/01/17 04/07/17 04/05/17 History Ergocalciferol [Vitamin D2] 1 cap PO QWEEK 04/01/17 04/07/17 04/02/17 History Nadolol 80 mg PO DAILY 04/01/17 04/01/17 04/07/17 08:00 History Oxybutynin Chloride [Ditropan Xl] 15 mg PO QDAY 04/01/17 04/01/17 04/07/17 08: 00 History Potassium Chloride [Klor-Con M10] 10 meq PO DAILY 04/01/17 04/01/17 04/07/17 08: 00 History Pravastatin [Pravachol] 20 mg PO QHS 0104/01/17 04/07/17 08:00 History Ranitidine HCl [Zantac 300 MG TAB] 300 mg PO DAILY 04/01/17 04/07/17 04/06/17 History Sertraline [Zoloft] 200 mg pe PO DAILY 04/01/17 04/01/17 04/07/17 08:00 History Triamter/Hctz 75-50 mg (Nf) 1 tab PO DAILY 04/01/17 04/07/17 04/06/17 History [Maxzide 75-50 mg] Venlafaxine HCl 75 mg PO DAILY 04/01/17 04/01/17 04/07/17 08:00 History rOPINIRole [Requip] 2 mg PO QHS 04/01/17 04/07/17 04/06/17 History Active Meds: Active Medications Acetaminophen (Tylenol) 650 mg PO Q4H PRN PRN Reason: Pain MILD(1-3)/Fever >100.5/[place] Albuterol (Proventil) 2.5 mg IH Q4HRT PRN PRN Reason: Shortness Of Breath Metronidazole (Flagyl 500 Mg/100 Ml) 500 mg in 100 mls @ 100 mls/hr IV Q8HR [facility] Last Admin: 05/05/17 06:06 Dose: 100 mls/hr Levofloxacin/Dextrose (Levaquin 250mg/50ml) 250 mg in 50 mls @ 50 mls/hr IV Q24HR [facility] Sodium Chloride (Nacl 0.9% 1000 Ml) 1,000 mls @ 50 mls/hr IV DIRECT [facility]EDINA Last Admin: 05/05/17 10:30 Dose: 50 mls/hr Morphine Sulfate (Morphine) 2 mg IV Q6H PRN PRN Reason: Pain, Moderate (4-6) Ondansetron HCl (Zofran) 4 mg IV Q8H PRN PRN Reason: Nausea And Vomiting Last Admin: 05/04/17 22:37 Dose: 4 mg Pneumococcal Polyvalent Vaccine (Pneumovax 23) 0.5 ml IM .ONCE ONE Stop: 05/06/17 12:01 Ropinirole HCl (Requip) 2 mg PO QHS [facility] Last Admin: 05/04/17 22:25 Dose: 2 mg Review of Systems All systems: negative - Constitutional fatigue, poor appetite - Gastrointestinal abdominal pain, nausea, vomiting, change in bowel habits, BRBPR, melena Exam Vital Signs Temp Pulse Resp BP Pulse Ox 97.4 F L 54 L 20 155/61 95 05/04/17 08:17 05/04/17 08:17 05/04/17 08:17 05/04/17 08:17 05/04/17 08:17 - General physical appearance Positive: well developed, well nourished, no distress - Eyes Positive: PERRL - Respiratory Positive: normal expansion, normal respiratory effort - Cardiovascular Rhythm: regular Heart Sounds: Present: S1 & S2 - Extremities Extremities: no ischemia, pulses intact - Breasts Breasts: deferred - Abdomen Abdomen: Present: soft, distended, other (incision healed. tender to deep palpation in RLQ and LUQ. no reboudn on guarding. ) Hernia: none - Rectum Rectum: no hemorrhoids - Integumentary no rash, no growths, no abnormal pigmentation - Neurologic Neurologic: alert and oriented to time, place and person, motor strength and sensation are grossly intact - Musculoskeletal normal posture - Psychiatric Psychiatric: appropriate mood/affect, intact judgment & insight, memory intact, cooperative Results - Labs 05/05/17 08:28 05/05/17 08:28 Abnormal lab results 05/05/17 05/05/17 Range/Units 08:28 08:28 RBC 3.53 L (3.65-5.03) M/mm3 Plt Count 106 L (140-440) K/mm3 [place] % (Auto) 13.2 H (0.0-7.3) % Lymph # 1.0 L (1.2-5.4) K/mm3 Potassium 3.4 L D (3.6-5.0) mmol/L BUN 46 H (7-17) mg/dL Creatinine 1.6 H (0.7-1.2) mg/dL Glucose 107 H (65-100) mg/dL AST 42 H (5-40) units/L Total Protein 5.8 L (6.3-8.2) g/dL Albumin 3.4 L (3.9-5) g/dL Diabetes panel 05/05/17 Range/Units 08:28 Sodium 138 (137-145) mmol/L Potassium 3.4 L D (3.6-5.0) mmol/L Chloride 98.9 (98-107) mmol/L Carbon Dioxide 28 (22-30) mmol/L BUN 46 H (7-17) mg/dL Creatinine 1.6 H (0.7-1.2) mg/dL Glucose 107 H (65-100) mg/dL Calcium 8.8 D (8.4-10.2) mg/dL AST 42 H (5-40) units/L ALT 22 (7-56) units/L Alkaline Phosphatase 99 (35-129) units/L Total Protein 5.8 L (6.3-8.2) g/dL Albumin 3.4 L (3.9-5) g/dL Calcium panel 05/05/17 Range/Units 08:28 Calcium 8.8 D (8.4-10.2) mg/dL Phosphorus 3.90 (2.5-4.5) mg/dL Albumin 3.4 L (3.9-5) g/dL Pituitary panel 05/05/17 Range/Units 08:28 Sodium 138 (137-145) mmol/L Potassium 3.4 L D (3.6-5.0) mmol/L Chloride 98.9 (98-107) mmol/L Carbon Dioxide 28 (22-30) mmol/L BUN 46 H (7-17) mg/dL Creatinine 1.6 H (0.7-1.2) mg/dL Glucose 107 H (65-100) mg/dL Calcium 8.8 D (8.4-10.2) mg/dL Adrenal panel 05/05/17 Range/Units 08:28 Sodium 138 (137-145) mmol/L Potassium 3.4 L D (3.6-5.0) mmol/L Chloride 98.9 (98-107) mmol/L Carbon Dioxide 28 (22-30) mmol/L BUN 46 H (7-17) mg/dL Creatinine 1.6 H (0.7-1.2) mg/dL Glucose 107 H (65-100) mg/dL Calcium 8.8 D (8.4-10.2) mg/dL Total Bilirubin 0.70 (0.1-1.2) mg/dL AST 42 H (5-40) units/L ALT 22 (7-56) units/L Alkaline Phosphatase 99 (35-129) units/L Total Protein 5.8 L (6.3-8.2) g/dL Albumin 3.4 L (3.9-5) g/dL Assessment and Plan 67 y.o F with hx of lap gastric sleeve 04/07/17 with abdominal pain and bleeding per rectum: GI bleed: s/p colonoscopy: ischemic colitis per GI -antibx -f/u am cbc N/v: pt tolerating diet currently. If she feels any nausea or had vomiting in am will order upper gi series to assess the sleeve. Will eval pt in the am.
--- NOTE | 2017-05-05 14:58 | Post Anesthesia Evaluation ---
- Post Anesthesia Evaluation Patient Participated: Yes Airway Patent: Yes Stable Respiratory Function: Yes Nausea/Vomiting: No Temp > 96.8F: Yes Pain Manageable: Yes Adequeate Hydration: Yes Anesthesia Complications: No
[2017-05-05] MEDS ORDERED: VALIUM PO PRN (16:22)
--- NOTE | 2017-05-05 16:49 | Progress Note ---
<FRANCISCO J LOPEZ - Last Filed: 05/05/17 16:49> Assessment and Plan Assessment and plan: 67 YO Female with Obesity S/P Gastric Sleeve, HTN, GERD, OA presents to ED for evaluation. Pt states that she was in her usual state of health, until yesterday. Pt states that she experienced acute onset abdominal pain. Pain is localized to the left side of her abdomen. Pain is 5/10, intermittent, worse with palpation, or movement, not relieved with rest. Pt acknowledges rectal bleeding as well as nausea. (1) GI bleed: IV PPI therapy, CT ABdomen pelvis, GI consulted in ED, Bariatric Surery consulted in ED, Abdominal x ray, pain control, serial abdominal exams, (2) SIRS (systemic inflammatory response syndrome) IV antibiotics, CBC, X ray, CT abdomen pelvis, (3) HTN (hypertension) monitor bp q shift, IV hydralazine prn, continue medical management. (4) GERD (gastroesophageal reflux disease) PPI therapy, GI consulted, (5) DVT prophylaxis SCD to BLE History Interval history: Patient seen and examined with at bedside. Continues to complain of Lower abdominal pain. Labs and nursing notes reviewed. Hospitalist Physical - Constitutional Vitals: Temp Pulse Resp BP Pulse Ox 97.8 F 64 14 179/77 99 05/05/17 11:03 05/05/17 11:44 05/05/17 11:44 05/05/17 11:44 05/05/17 11:44 General appearance: Present: mild distress, well-nourished, obese - EENT Eyes: Present: PERRL, EOM intact ENT: hearing intact, clear oral mucosa - Neck Neck: Present: supple, normal ROM - Respiratory Respiratory effort: normal Respiratory: bilateral: CTA - Cardiovascular Rhythm: regular Heart Sounds: Present: S1 & S2 - Extremities Extremities: no ischemia, No edema - Abdominal General gastrointestinal: soft, tender, non-distended Localized gastrointestinal: tender: RLQ, LLQ - Integumentary Integumentary: Present: clear, warm, dry - Psychiatric Psychiatric: appropriate mood/affect, cooperative - Neurologic Neurologic: CNII-XII intact - Allied Health Allied health notes reviewed: nursing Results - Labs CBC & Chem 7: 05/05/17 08:28 05/05/17 08:28 Labs: Laboratory Last Values WBC 4.7 K/mm3 (4.5-11.0) 05/05/17 08: RBC 3.53 M/mm3 (3.65-5.03) L 05/05/17 08:28 Hgb 11.0 gm/dl (10.1-14.3) 05/05/17 08: Hct 32.6 % (30.3-42.9) D 05/05/17 08: MCV 92 fl (79-97) 05/05/17 08: MCH 31 pg (28-32) 05/05/17 08: MCHC 34 % (30-34) 05/05/17 08: RDW 14.2 % (13.2-15.2) 05/05/17 08: Plt Count 106 K/mm3 (140-440) L 05/05/17 08: Lymph % (Auto) 22.2 % (13.4-35.0) 05/05/17 08: [place] % (Auto) 13.2 % (0.0-7.3) H 05/05/17 08: Eos % (Auto) 0.6 % (0.0-4.3) 05/05/17 08: Baso % (Auto) 0.3 % (0.0-1.8) 05/05/17 08: Lymph # 1.0 K/mm3 (1.2-5.4) L 05/05/17 08: [place] # 0.6 K/mm3 (0.0-0.8) 05/05/17 08: Eos # 0.0 K/mm3 (0.0-0.4) 05/05/17 08: Baso # 0.0 K/mm3 (0.0-0.1) 05/05/17 08: Add Manual Diff Complete 05/04/17 08:28 Total Counted 100 05/04/17 08: Seg Neutrophils % 63.7 % (40.0-70.0) 05/05/17 08: Seg Neuts % (Manual) 90.0 % (40.0-70.0) H 05/04/17 08:28 Band Neutrophils % 0 % 05/04/17 08:28 Lymphocytes % (Manual) 7.0 % (13.4-35.0) L 03/05/18 08:28 Reactive Lymphs % (Man) 0 % 05/04/17 08:28 Monocytes % (Manual) 3.0 % (0.0-7.3) 05/04/17 08:28 Eosinophils % (Manual) 0 % (0.0-4.3) 05/04/17 08:28 Basophils % (Manual) 0 % (0.0-1.8) 05/04/17 08:28 Metamyelocytes % 0 % 05/04/17 08:28 Myelocytes % 0 % 05/04/17 08:28 Promyelocytes % 0 % 05/04/17 08:28 Blast Cells % 0 % 05/04/17 08:28 Nucleated RBC % Not Reportable 05/04/17 08:28 Seg Neutrophils # 3.0 K/mm3 (1.8-7.7) 05/05/17 08:28 Seg Neutrophils # Man 11.4 K/mm3 (1.8-7.7) H 05/04/17 08:28 Band Neutrophils # 0.0 K/mm3 05/04/17 08:28 Lymphocytes # (Manual) 0.9 K/mm3 (1.2-5.4) L 05/04/17 08:28 Abs React Lymphs (Man) 0.0 K/mm3 05/04/17 08:28 Monocytes # (Manual) 0.4 K/mm3 (0.0-0.8) 05/04/17 08:28 Eosinophils # (Manual) 0.0 K/mm3 (0.0-0.4) 05/04/17 08:28 Basophils # (Manual) 0.0 K/mm3 (0.0-0.1) 05/04/17 08:28 Metamyelocytes # 0.0 K/mm3 05/04/17 08:28 Myelocytes # 0.0 K/mm3 05/04/17 08:28 Promyelocytes # 0.0 K/mm3 05/04/17 08:28 Blast Cells # 0.0 K/mm3 05/04/17 08:28 WBC Morphology Not Reportable 05/04/17 08:28 Hypersegmented Neuts Not Reportable 05/04/17 08:28 Hyposegmented Neuts Not Reportable 05/04/17 08:28 Hypogranular Neuts Not Reportable 05/04/17 08:28 Smudge Cells Not Reportable 05/04/17 08:28 Toxic Granulation Not Reportable 05/04/17 08:28 Toxic Vacuolation Not Reportable 05/04/17 08:28 Dohle Bodies Not Reportable 05/04/17 08:28 Pelger-Huet Anomaly Not Reportable 05/04/17 08:28 Liz Rods Not Reportable 05/04/17 08:28 Platelet Estimate Not Reportable 05/04/17 08:28 Clumped Platelets Not Reportable 05/04/17 08:28 Plt Clumps, EDTA Not Reportable 05/04/17 08:28 Large Platelets Not Reportable 05/04/17 08:28 Giant Platelets Not Reportable 05/04/17 08:28 Platelet Satelliting Not Reportable 05/04/17 08:28 Plt Morphology Comment Not Reportable 05/04/17 08:28 RBC Morphology Normal 05/04/17 08:28 Dimorphic RBCs Not Reportable 05/04/17 08:28 Polychromasia Not Reportable 05/04/17 08:28 Hypochromasia Not Reportable 05/04/17 08:28 Poikilocytosis Not Reportable 05/04/17 08:28 Anisocytosis Not Reportable 05/04/17 08:28 Microcytosis Not Reportable 05/04/17 08:28 Macrocytosis Not Reportable 05/04/17 08:28 Spherocytes Not Reportable 05/04/17 08:28 Pappenheimer Bodies Not Reportable 05/04/17 08:28 Sickle Cells Not Reportable 05/04/17 08:28 Target Cells Not Reportable 05/04/17 08:28 Tear Drop Cells Not Reportable 05/04/17 08:28 Ovalocytes Not Reportable 05/04/17 08:28 Helmet Cells Not Reportable 05/04/17 08:28 Pittman-Saxman Bodies Not Reportable 05/04/17 08:28 [place] Rings Not Reportable 05/04/17 08:28 Jacki Cells Not Reportable 05/04/17 08:28 Bite Cells Not Reportable 05/04/17 08:28 Crenated Cell Not Reportable 05/04/17 08:28 Elliptocytes Not Reportable 05/04/17 08:28 Acanthocytes (Spur) Not Reportable 05/04/17 08:28 Rouleaux Not Reportable 05/04/17 08:28 Hemoglobin C Crystals Not Reportable 05/04/17 08:28 Schistocytes Not Reportable 05/04/17 08:28 Malaria parasites Not Reportable 05/04/17 08:28 Ludin Bodies Not Reportable 05/04/17 08:28 Hem Pathologist Commnt No 05/04/17 08:28 PT 14.4 Sec. (12.2-14.9) 05/04/17 17:06 INR 1.06 (0.87-1.13) 05/04/17 17:06 APTT 25.8 Sec. (24.2-36.6) 05/04/17 17:06 Sodium 138 mmol/L (137-145) 05/05/17 08:28 Potassium 3.4 mmol/L (3.6-5.0) L D 05/05/17 08:28 Chloride 98.9 mmol/L (98-107) 05/05/17 08:28 Carbon Dioxide 28 mmol/L (22-30) 05/05/17 08:28 Anion Gap 15 mmol/L 05/05/17 08:28 BUN 46 mg/dL (7-17) H 05/05/17 08:28 Creatinine 1.6 mg/dL (0.7-1.2) H 05/05/17 08:28 Estimated GFR 32 ml/min 05/05/17 08:28 BUN/Creatinine Ratio 29 % 05/05/17 08:28 Glucose 107 mg/dL (65-100) H 05/05/17 08:28 Lactic Acid 1.30 mmol/L (0.7-2.0) 05/05/17 13:44 Calcium 8.8 mg/dL (8.4-10.2) D 05/05/17 08:28 Phosphorus 3.90 mg/dL (2.5-4.5) 05/05/17 08:28 Magnesium 1.80 mg/dL (1.7-2.3) 05/05/17 08:28 Total Bilirubin 0.70 mg/dL (0.1-1.2) 05/05/17 08:28 AST 42 units/L (5-40) H 05/05/17 08:28 ALT 22 units/L (7-56) 05/05/17 08:28 Alkaline Phosphatase 99 units/L (35-129) 05/05/17 08:28 Total Protein 5.8 g/dL (6.3-8.2) L 05/05/17 08:28 Albumin 3.4 g/dL (3.9-5) L 05/05/17 08:28 Albumin/Globulin Ratio 1.4 % 05/05/17 08:28 Urine Color Yellow (Yellow) 05/04/17 17:13 Urine Turbidity Clear (Clear) 05/04/17 17:13 Urine pH 5.0 (5.0-7.0) 05/04/17 17:13 Ur Specific [place] 1.018 (1.003-1.030) 05/04/17 17:13 Urine Protein <15 mg/dl mg/dL (Negative) 05/04/17 17:13 Urine Glucose (UA) Neg mg/dL (Negative) 05/04/17 17:13 Urine Ketones Neg mg/dL (Negative) 05/04/17 17:13 Urine Blood Neg (Negative) 05/04/17 17:13 Urine Nitrite Neg (Negative) 05/04/17 17:13 Urine Bilirubin Neg (Negative) 05/04/17 17:13 Urine Urobilinogen < 2.0 mg/dL (<2.0) 05/04/17 17:13 Ur Leukocyte Esterase Neg (Negative) 05/04/17 17:13 Urine WBC (Auto) 1.0 /HPF (0.0-6.0) 05/04/17 17:13 Urine RBC (Auto) < 1.0 /HPF (0.0-6.0) 05/04/17 17:13 U Epithel Cells (Auto) < 1.0 /HPF (0-13.0) 05/04/17 17:13 Urine Mucus Few /HPF 05/04/17 17:13 Blood Type A POSITIVE 05/04/17 17:06 Antibody Screen Negative 05/04/17 17:06 <TITI HUA - Last Filed: 05/06/17 01:36> Assessment and Plan Assessment and plan: I saw and evaluated the patient. I agree with the findings and the plan of care as documented in the Physician Assistants~note, with the following corrections and additions. No evidence of Gross GI bleed. Colonoscopy reveals ischemic Colitis, Will continue flagly and levaquin and transition to PO in am. Case discussed with [facility] surgery team Hospitalist Physical - Constitutional Vitals: Temp Pulse Resp BP Pulse Ox 98.6 F 60 18 141/59 95 05/05/17 19:01 05/05/17 22:00 05/05/17 19:01 05/05/17 19:01 05/05/17 20:35 Results - Labs CBC & Chem 7: 05/05/17 08:28 05/05/17 08:28 Labs: Laboratory Last Values WBC 4.7 K/mm3 (4.5-11.0) 05/05/17 08:28 RBC 3.53 M/mm3 (3.65-5.03) L 05/05/17 08:28 Hgb 11.0 gm/dl (10.1-14.3) 05/05/17 08:28 Hct 32.6 % (30.3-42.9) D 05/05/17 08:28 MCV 92 fl (79-97) 05/05/17 08:28 MCH 31 pg (28-32) 05/05/17 08:28 MCHC 34 % (30-34) 05/05/17 08:28 RDW 14.2 % (13.2-15.2) 05/05/17 08:28 Plt Count 106 K/mm3 (140-440) L 05/05/17 08:28 Lymph % (Auto) 22.2 % (13.4-35.0) 05/05/17 08:28 [place] % (Auto) 13.2 % (0.0-7.3) H 05/05/17 08:28 Eos % (Auto) 0.6 % (0.0-4.3) 05/05/17 08:28 Baso % (Auto) 0.3 % (0.0-1.8) 05/05/17 08:28 Lymph # 1.0 K/mm3 (1.2-5.4) L 05/05/17 08:28 [place] # 0.6 K/mm3 (0.0-0.8) 05/05/17 08:28 Eos # 0.0 K/mm3 (0.0-0.4) 05/05/17 08:28 Baso # 0.0 K/mm3 (0.0-0.1) 05/05/17 08:28 Add Manual Diff Complete 05/04/17 08:28 Total Counted 100 05/04/17 08:28 Seg Neutrophils % 63.7 % (40.0-70.0) 05/05/17 08:28 Seg Neuts % (Manual) 90.0 % (40.0-70.0) H 05/04/17 08:28 Band Neutrophils % 0 % 05/04/17 08:28 Lymphocytes % (Manual) 7.0 % (13.4-35.0) L 05/04/17 08:28 Reactive Lymphs % (Man) 0 % 05/04/17 08:28 Monocytes % (Manual) 3.0 % (0.0-7.3) 05/04/17 08:28 Eosinophils % (Manual) 0 % (0.0-4.3) 05/04/17 08:28 Basophils % (Manual) 0 % (0.0-1.8) 05/04/17 08:28 Metamyelocytes % 0 % 05/04/17 08:28 Myelocytes % 0 % 05/04/17 08:28 Promyelocytes % 0 % 05/04/17 08:28 Blast Cells % 0 % 05/04/17 08:28 Nucleated RBC % Not Reportable 05/04/17 08:28 Seg Neutrophils # 3.0 K/mm3 (1.8-7.7) 05/05/17 08:28 Seg Neutrophils # Man 11.4 K/mm3 (1.8-7.7) H 05/04/17 08:28 Band Neutrophils # 0.0 K/mm3 05/04/17 08:28 Lymphocytes # (Manual) 0.9 K/mm3 (1.2-5.4) L 05/04/17 08:28 Abs React Lymphs (Man) 0.0 K/mm3 05/04/17 08:28 Monocytes # (Manual) 0.4 K/mm3 (0.0-0.8) 05/04/17 08:28 Eosinophils # (Manual) 0.0 K/mm3 (0.0-0.4) 05/04/17 08:28 Basophils # (Manual) 0.0 K/mm3 (0.0-0.1) 05/04/17 08:28 Metamyelocytes # 0.0 K/mm3 05/04/17 08:28 Myelocytes # 0.0 K/mm3 05/04/17 08:28 Promyelocytes # 0.0 K/mm3 05/04/17 08:28 Blast Cells # 0.0 K/mm3 05/04/17 08:28 WBC Morphology Not Reportable 05/04/17 08:28 Hypersegmented Neuts Not Reportable 05/04/17 08:28 Hyposegmented Neuts Not Reportable 05/04/17 08:28 Hypogranular Neuts Not Reportable 05/04/17 08:28 Smudge Cells Not Reportable 05/04/17 08:28 Toxic Granulation Not Reportable 05/04/17 08:28 Toxic Vacuolation Not Reportable 05/04/17 08:28 Dohle Bodies Not Reportable 05/04/17 08:28 Pelger-Huet Anomaly Not Reportable 05/04/17 08:28 Liz Rods Not Reportable 05/04/17 08:28 Platelet Estimate Not Reportable 05/04/17 08:28 Clumped Platelets Not Reportable 05/04/17 08:28 Plt Clumps, EDTA Not Reportable 05/04/17 08:28 Large Platelets Not Reportable 05/04/17 08:28 Giant Platelets Not Reportable 05/04/17 08:28 Platelet Satelliting Not Reportable 05/04/17 08:28 Plt Morphology Comment Not Reportable 05/04/17 08:28 RBC Morphology Normal 05/04/17 08:28 Dimorphic RBCs Not Reportable 05/04/17 08:28 Polychromasia Not Reportable 05/04/17 08:28 Hypochromasia Not Reportable 05/04/17 08:28 Poikilocytosis Not Reportable 05/04/17 08:28 Anisocytosis Not Reportable 05/04/17 08:28 Microcytosis Not Reportable 05/04/17 08:28 Macrocytosis Not Reportable 05/04/17 08:28 Spherocytes Not Reportable 05/04/17 08:28 Pappenheimer Bodies Not Reportable 05/04/17 08:28 Sickle Cells Not Reportable 05/04/17 08:28 Target Cells Not Reportable 05/04/17 08:28 Tear Drop Cells Not Reportable 05/04/17 08:28 Ovalocytes Not Reportable 05/04/17 08:28 Helmet Cells Not Reportable 05/04/17 08:28 Pittman-Saxman Bodies Not Reportable 05/04/17 08:28 [place] Rings Not Reportable 05/04/17 08:28 Dania Cells Not Reportable 05/04/17 08:28 Bite Cells Not Reportable 05/04/17 08:28 Crenated Cell Not Reportable 05/04/17 08:28 Elliptocytes Not Reportable 05/04/17 08:28 Acanthocytes (Spur) Not Reportable 05/04/17 08:28 Rouleaux Not Reportable 05/04/17 08:28 Hemoglobin C Crystals Not Reportable 05/04/17 08:28 Schistocytes Not Reportable 05/04/17 08:28 Malaria parasites Not Reportable 05/04/17 08:28 Ludin Bodies Not Reportable 05/04/17 08:28 Hem Pathologist Commnt No 05/04/17 08:28 PT 14.4 Sec. (12.2-14.9) 05/04/17 17:06 INR 1.06 (0.87-1.13) 05/04/17 17:06 APTT 25.8 Sec. (24.2-36.6) 05/04/17 17:06 Sodium 138 mmol/L (137-145) 05/05/17 08:28 Potassium 3.4 mmol/L (3.6-5.0) L D 05/05/17 08:28 Chloride 98.9 mmol/L (98-107) 05/05/17 08:28 Carbon Dioxide 28 mmol/L (22-30) 05/05/17 08:28 Anion Gap 15 mmol/L 05/05/17 08:28 BUN 46 mg/dL (7-17) H 05/05/17 08:28 Creatinine 1.6 mg/dL (0.7-1.2) H 05/05/17 08:28 Estimated GFR 32 ml/min 05/05/17 08:28 BUN/Creatinine Ratio 29 % 05/05/17 08:28 Glucose 107 mg/dL (65-100) H 05/05/17 08:28 Lactic Acid 1.30 mmol/L (0.7-2.0) 05/05/17 13:44 Calcium 8.8 mg/dL (8.4-10.2) D 05/05/17 08:28 Phosphorus 3.90 mg/dL (2.5-4.5) 05/05/17 08:28 Magnesium 1.80 mg/dL (1.7-2.3) 05/05/17 08:28 Total Bilirubin 0.70 mg/dL (0.1-1.2) 05/05/17 08:28 AST 42 units/L (5-40) H 05/05/17 08:28 ALT 22 units/L (7-56) 05/05/17 08:28 Alkaline Phosphatase 99 units/L (35-129) 05/05/17 08:28 Total Protein 5.8 g/dL (6.3-8.2) L 05/05/17 08:28 Albumin 3.4 g/dL (3.9-5) L 05/05/17 08:28 Albumin/Globulin Ratio 1.4 % 05/05/17 08:28 Urine Color Yellow (Yellow) 05/04/17 17:13 Urine Turbidity Clear (Clear) 05/04/17 17:13 Urine pH 5.0 (5.0-7.0) 05/04/17 17:13 Ur Specific [place] 1.018 (1.003-1.030) 05/04/17 17:13 Urine Protein <15 mg/dl mg/dL (Negative) 05/04/17 17:13 Urine Glucose (UA) Neg mg/dL (Negative) 05/04/17 17:13 Urine Ketones Neg mg/dL (Negative) 05/04/17 17:13 Urine Blood Neg (Negative) 05/04/17 17:13 Urine Nitrite Neg (Negative) 05/04/17 17:13 Urine Bilirubin Neg (Negative) 05/04/17 17:13 Urine Urobilinogen < 2.0 mg/dL (<2.0) 05/04/17 17:13 Ur Leukocyte Esterase Neg (Negative) 05/04/17 17:13 Urine WBC (Auto) 1.0 /HPF (0.0-6.0) 05/04/17 17:13 Urine RBC (Auto) < 1.0 /HPF (0.0-6.0) 05/04/17 17:13 U Epithel Cells (Auto) < 1.0 /HPF (0-13.0) 05/04/17 17:13 Urine Mucus Few /HPF 05/04/17 17:13 Blood Type A POSITIVE 05/04/17 17:06 Antibody Screen Negative 05/04/17 17:06
[2017-05-05] MEDS: REQUIP PO SCH (21:19)
[2017-05-05] MEDS ORDERED: DEXLANSOPRAZOLE 60 MG PO SCH (22:00)
[2017-05-05] MEDS ORDERED: REQUIP PO SCH (22:00)
[2017-05-05] MEDS ORDERED: PRAVACHOL PO SCH (22:00)
[2017-05-06] MEDS: FLAGYL 500 MG/100 ML 500 MG/100 ML BAG IV SCH ×2 (05:06→13:12)
[2017-05-06] MEDS ORDERED: MORPHINE IV PRN (05:13)
[2017-05-06 08:31] VITALS: BP 156/66
--- NOTE | 2017-05-06 09:22 | Progress Note ---
Assessment and Plan 67 y.o F with hx of lap gastric sleeve 04/07/17 with abdominal pain and bleeding per rectum: GI bleed: s/p colonoscopy: ischemic colitis per GI -antibx -f/u am cbc Dysphagia: "food stuck" upper gi series this am. Unknown cause of prev. esophageal narrowing requiring dilation Subjective Narrative: Pt seen and examined. She ate food last night and feels that even water becomes "stuck" in her mid esophagus. She denies any regurg. Pt started having this kind of feeling starting last week. She had similar symptoms last year. She was seen by a GI doctor and had esophageal dilation June2016. Denies further GI bleeding. Passing flatus. denies nausea or vomiting Objective Vital Signs - 12hr 05/05/17 05/06/17 05/06/17 22:00 02:45 04:14 Temperature 98.2 F Pulse Rate 60 52 L Respiratory 18 Rate Blood Pressure 131/48 O2 Sat by Pulse 95 98 Oximetry 05/06/17 07:33 Temperature 98.8 F Pulse Rate 53 L Respiratory 18 Rate Blood Pressure 156/66 O2 Sat by Pulse 99 Oximetry - General physical appearance well developed, well nourished, no distress - Respiratory normal expansion, normal respiratory effort - Abdomen soft, other (tender llq and luq. minimally distended. obese) - Integumentary no rash, no growths - Neurologic normal coordination, normal sensation - Musculoskeletal normal posture - Psychiatric oriented to time, oriented to person, oriented to place, speech is normal - Labs 05/05/17 08:28 05/05/17 08:28 Diabetes panel 05/05/17 Range/Units 08:28 Sodium 138 (137-145) mmol/L Potassium 3.4 L D (3.6-5.0) mmol/L Chloride 98.9 (98-107) mmol/L Carbon Dioxide 28 (22-30) mmol/L BUN 46 H (7-17) mg/dL Creatinine 1.6 H (0.7-1.2) mg/dL Glucose 107 H (65-100) mg/dL Calcium 8.8 D (8.4-10.2) mg/dL AST 42 H (5-40) units/L ALT 22 (7-56) units/L Alkaline Phosphatase 99 (35-129) units/L Total Protein 5.8 L (6.3-8.2) g/dL Albumin 3.4 L (3.9-5) g/dL Calcium panel 05/05/17 Range/Units 08:28 Calcium 8.8 D (8.4-10.2) mg/dL Phosphorus 3.90 (2.5-4.5) mg/dL Albumin 3.4 L (3.9-5) g/dL Pituitary panel 05/05/17 Range/Units 08:28 Sodium 138 (137-145) mmol/L Potassium 3.4 L D (3.6-5.0) mmol/L Chloride 98.9 (98-107) mmol/L Carbon Dioxide 28 (22-30) mmol/L BUN 46 H (7-17) mg/dL Creatinine 1.6 H (0.7-1.2) mg/dL Glucose 107 H (65-100) mg/dL Calcium 8.8 D (8.4-10.2) mg/dL Adrenal panel 05/05/17 Range/Units 08:28 Sodium 138 (137-145) mmol/L Potassium 3.4 L D (3.6-5.0) mmol/L Chloride 98.9 (98-107) mmol/L Carbon Dioxide 28 (22-30) mmol/L BUN 46 H (7-17) mg/dL Creatinine 1.6 H (0.7-1.2) mg/dL Glucose 107 H (65-100) mg/dL Calcium 8.8 D (8.4-10.2) mg/dL Total Bilirubin 0.70 (0.1-1.2) mg/dL AST 42 H (5-40) units/L ALT 22 (7-56) units/L Alkaline Phosphatase 99 (35-129) units/L Total Protein 5.8 L (6.3-8.2) g/dL Albumin 3.4 L (3.9-5) g/dL
[2017-05-06] MEDS ORDERED: HCTZ PO SCH (10:00)
[2017-05-06] MEDS ORDERED: PROTONIX PO SCH (10:00)
[2017-05-06] MEDS ORDERED: DITROPAN XL PO SCH (10:00)
[2017-05-06] MEDS ORDERED: EFFEXOR PO SCH (10:00)
[2017-05-06] MEDS ORDERED: LEVAQUIN 250MG/50ML 250 MG/50 ML BAG IV SCH (10:00)
[2017-05-06] MEDS ORDERED: MAXZIDE-25 PO SCH (10:00)
[2017-05-06] MEDS ORDERED: ZOLOFT PO SCH (10:00)
[2017-05-06] MEDS ORDERED: OXYBUTYNIN CHLORIDE 15 MG PO SCH (10:00)
[2017-05-06] MEDS ORDERED: K-DUR PO SCH (10:00)
[2017-05-06] MEDS ORDERED: TRIAMTER PO SCH (10:00)
[2017-05-06] MEDS ORDERED: PNEUMOVAX 23 IM ONE (12:00)
--- NOTE | 2017-05-06 13:17 | Fluoroscopy Report ---
GI series with KUB: Post swallow discomfort in her mid and lower chest region. History of esophageal dilatation one year ago and gastric stapling one month ago. The initial KUB demonstrates scattered surgical clips in the upper abdomen and right lower quadrant. The gas pattern is generally unremarkable. 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 The patient was able swallow thin barium without difficulty. The proximal esophagus appears generally unremarkable. The distal third of the esophagus demonstrates tertiary wave forms. The esophagogastric junction appears to be slightly narrowed. A 13 mm tablet was given to the patient. It passed readily to the distal esophagus where it was held up for substantial length of time requiring it to dissolve before passing. The patient had recreation of her symptoms with both liquid and tablet. Limited evaluation of the stomach demonstrated no evidence of leakage with unobstructed passage of contrast into the small bowel. Impressions: Esophagogastric junction stenosis. Unremarkable post gastric stapling.
--- NOTE | 2017-05-06 13:26 | Event Note ---
Surgery Note: Upper GI series reviewed: Possible stenosis at GE junction. Unknown area that was previously dilated . Pt just started to have difficulty swallowing last week. Unlikely due to lap sleeve and hh repair. Rec. pt follow up with her primary GI doctor. This plan has been discussed with Dr. Ramsey and he agrees with above.
--- NOTE | 2017-05-06 15:13 | Discharge Summary ---
Providers - Providers Date of Admission: 05/04/17 17:12 Date of discharge: 05/06/17 Attending physician: TITI HUA MD 05/04/17 17:05 Consult to Physician [CONS] Stat Consulting Provider: RUBIO JACOBSEN Reason For Exam: GI BLEED Notified:: YES, 05/04/17 17:42 Consult to Physician [CONS] Stat Consulting Provider: JUDITH GALINDO Reason For Exam: abdominal pain, s/p gastric sleeve Notified:: discuss with Dr Vieyra. Primary care physician: LOGISTICS MANAGER Hospitalization Condition: Stable Disposition: DC-30 STILL A PATIENT Exam - Constitutional Vitals: Temp Pulse Resp BP Pulse Ox 98.8 F 53 L 18 156/66 99 05/06/17 07:33 05/06/17 07:33 05/06/17 07:33 05/06/17 07:33 05/06/17 07:33 Plan Additional Instructions: Please follow up with your [facility] within 7 days after discharge Follow up with: JUDITH CORBIN MD [Primary Care Provider] - 3-5 Days
--- NOTE | 2017-05-06 17:32 | Gastroenterology Progress Note ---
Assessment and Plan GI:pt s/o colonoscopy w/ signs colitis, probably ischemic - to complete outpt antibiotics and f/u - ok to d/c, will sign off Subjective Date of service: 05/06/17 Interval history: - no problems overnight Objective - Constitutional Vitals: Temp Pulse Resp BP Pulse Ox 98.8 F 53 L 18 156/66 97 05/06/17 07:33 05/06/17 07:33 05/06/17 07:33 05/06/17 07:33 05/06/17 10:00 General appearance: no acute distress - EENT Eyes: PERRL - Respiratory Respiratory: bilateral: CTA - Cardiovascular Rhythm: regular Heart Sounds: Present: S1 & S2 - Gastrointestinal General gastrointestinal: Present: soft, non-tender, non-distended - Labs CBC & Chem 7: 05/05/17 08:28 05/05/17 08:28
[2017-05-12] MEDS ORDERED: FOSAMAX PO SCH (06:30)
[2017-05-14] MEDS ORDERED: VITAMIN D2 PO SCH (18:00)
== END 2017-05-06 16:30 | disposition home or self-care (01) | DRG 393 ==
LOC: ED 08:07 → 2B-ACE 17:12
PROVIDERS: ADMIT Internal Medicine; ATTEND Internal Medicine
PROC: 0DBN8ZX Excision of Sigmoid Colon, Via Natural or Artificial Opening Endoscopic, Diagnostic (ICD-10-PCS; principal; 2017-05-06)
PROC: 3E0234Z Introduction of Serum, Toxoid and Vaccine into Muscle, Percutaneous Approach (ICD-10-PCS; 2017-05-06)
DX: K55.8 Other vascular disorders of intestine (principal); K57.31 Diverticulosis of large intestine without perforation or abscess with bleeding; R65.10 Systemic inflammatory response syndrome (SIRS) of non-infectious origin without acute organ dysfunction; Z68.41 Body mass index [BMI] 40.0-44.9, adult; E66.8 Other obesity; F32.9 Major depressive disorder, single episode, unspecified; M19.90 Unspecified osteoarthritis, unspecified site; K22.2 Esophageal obstruction; K64.8 Other hemorrhoids; K21.9 Gastro-esophageal reflux disease without esophagitis; Z82.49 Family history of ischemic heart disease and other diseases of the circulatory system; Z90.49 Acquired absence of other specified parts of digestive tract; Z79.899 Other long term (current) drug therapy; Z98.84 Bariatric surgery status; Z87.891 Personal history of nicotine dependence; Z23 Encounter for immunization
CPT/HCPCS: 36415; 74018; 74019; 74176; 74247; 80053; 81001; 82140; 83735; 84100; 85007; 85025; 85610; 85730; 86850; 86900; 86901; 88305; 90732; 96361; 96374; 96375; A9270-GY; J1956; J2270; J2405; J2704; J7030